=== PATIENT | male | born 1995 | race Caucasian/White ===

== ENCOUNTER 2017-12-31 19:32 | Inpatient (IN) ==
[2017-12-31] MEDS ORDERED: Diphtheria/Tetanus/Pertussis Vaccine Inj 0.5 ML Syringe IM ONE ×2 (19:40→19:49)
[2017-12-31] MEDS ORDERED: ceFAZolin 2 GM Premix Inj 2 GM/50 ML PIGGYBACK IV.SIG ONE ×3 (19:40→22:15)
[2017-12-31] MEDS ORDERED: Sod Chloride 0.9% Inj 1,000 ML IV.CONT SCH ×2 (19:45→23:45)
[2017-12-31] MEDS ORDERED: fentaNYL Citrate Inj 100 MCG/2 ML Ampul ONE ×2 (20:01→21:15)
--- NOTE | 2017-12-31 20:01 | XR ---
EXAM DATE: 12/31/2017 7:41 PM EDT AGE/SEX: 22 years / Male INDICATIONS: Trauma alert. Left forearm laceration. CLINICAL DATA: This is the patient's initial encounter. Patient reports that signs and symptoms have been present for 1 day and indicates a pain score of 10/10. MEDICAL/SURGICAL HISTORY: None. None. COMPARISON: No prior exams available for comparison. FINDINGS: A single AP view of the chest demonstrates the lungs to be symmetrically aerated without evidence of mass, infiltrate or effusion. The cardiomediastinal contours are unremarkable. Osseous structures a re intact. CONCLUSION: No acute cardiopulmonary process. Electronically signed by: Carlos A Smith MD 12/31/2017 8:00 PM EDT
--- NOTE | 2017-12-31 20:11 | XR ---
EXAM DATE: 12/31/2017 7:42 PM EDT AGE/SEX: 22 years / Male INDICATIONS: Trauma alert. Left forearm laceration. CLINICAL DATA: This is the patient's initial encounter. Patient reports that signs and symptoms have been present for 1 day and indicates a pain score of 10/10. MEDICAL/SURGICAL HISTORY: None. None. COMPARISON: No prior exams available for comparison. FINDINGS: Bony structures are intact and in normal alignment. Osseous density is normal. There appears to be s oft tissue swelling at the volar aspect of the midforearm. No radiopaque foreign bodies seen. CONCLUSION: Soft tissue swelling. An acute bony injury is not seen. Electronically signed by: Carlos A Smith MD 12/31/2017 8:10 PM EDT
[2017-12-31 20:17] LABS: Baso # (Auto) 0.1 th/mm3 (0.0-0.2); Baso % (Auto) 0.9 % (0.0-2.0); Eos # (Auto) 0.2 th/mm3 (0.0-0.4); Hematocrit 42.1 % (39.0-51.0); Hemoglobin 14.2 gm/dL (13.0-17.0); Mean Corpuscular HGB Conc 33.9 % (32.0-36.0); Mean Corpuscular Hemoglobin 31.1 pg (27.0-34.0); Mean Platelet Volume 8.9 fL (7.0-11.0); Mono # (Auto) 0.6 th/mm3 (0.0-0.9); Mono % (Auto) 6.2 % (0.0-8.0); Neut # (Auto) 4.4 th/mm3 (1.8-7.7); Neut % (Auto) 47.9 % (16.0-70.0); Platelet Count 250 th/mm3 (150-450); Red Blood Count 4.58 mil/mm3 (4.50-5.90); Red Cell Distribution Width 12.7 % (11.6-17.2); White Blood Count 9.2 th/mm3 (4.0-11.0)
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
[2017-12-31 20:29] LABS: Activated Partial Thrombo Time 22.6 sec (24.3-30.1); INR 1.1 Ratio; Prothrombin Time 10.7 sec (9.8-11.6)
[2017-12-31] MEDS ORDERED: Heparin 10,000 UNITS/10 ML Vial (for IV use) ONE (20:33)
[2017-12-31] MEDS ORDERED: Lidocaine 2% Inj 50 ML Vial ONE (20:33)
[2017-12-31] MEDS ORDERED: fentaNYL Citrate Inj 100 MCG/2 ML Ampul IV.PUSH ONE ×2 (20:45)
[2017-12-31] MEDS ORDERED: Sodium Chlor 0.9% Inj 250 ML IV.SIG SCH (21:00)
[2017-12-31] MEDS ORDERED: Heparin - SQ 10,000 UNITS/ML Vial ONE (21:08)
[2017-12-31] MEDS ORDERED: HYDROmorphone PF Inj 2 MG/ML Vial ONE (21:15)
[2017-12-31] MEDS ORDERED: Succinylcholine Inj 100 MG/5 ML Syringe IV.PUSH ONE (21:17)
[2017-12-31] MEDS ORDERED: Phenylephrine/NS 1000 MCG/10ML Syringe IV.PUSH ONE (21:17)
[2017-12-31] MEDS ORDERED: Lidocaine PF 1% Inj 5 ML Syringe OTHER ONE (21:17)
[2017-12-31] MEDS ORDERED: fentaNYL Citrate Inj 250 MCG/5 ML Ampul ONE (22:40)
[2017-12-31] MEDS ORDERED: Acetaminophen 325 MG Tablet PO PRN (23:49)
[2018-01-01] MEDS ORDERED: *Meperidine Inj 25 MG/ML Vial PERIprocedural Use ONLY ONE (03:14)
--- NOTE | 2018-01-01 03:16 | P.BOP ---
- Postoperative Diagnosis (1) Laceration of forearm, complicated (2) Vascular injury of left arm (3) Arm peripheral nerve injury Date of procedure: 01/01/18 Procedure: 1. Left ulnar and radial artery repair 2. Left median and ulnar nerve repair with allograft 3. Repair of flexor carpi radialis, FDS/FDP IF/MF/RF/SF Implants: Axogen Nerve Connectors, Allograft Surgeon: Deon Mendez MD Estimated blood loss (mL): 100 Pathology: none sent Condition: stable Disposition: ICU (1. Neurovascular checks q2H 2. ASA 650mg daily x 4 weeks 3. Elevate upper extremity 3. OK for discharge on POD#2)
[2018-01-01] MEDS ORDERED: *Ondansetron Inj 4 MG/2 ML Vial PERIprocedural Use ONLY ONE (03:20)
[2018-01-01] MEDS ORDERED: Chlorhexidine Gluconate 2% 1 Pack (2 Cloths) TOPICAL SCH (04:00)
[2018-01-01] MEDS ORDERED: Chlorhexidine Gluconate 2% 1 Pack (2 Cloths) TOPICAL PRN (04:00)
[2018-01-01] MEDS: Morphine Sulfate Inj 2 MG/ML Vial IV.PUSH PRN ×3 (04:17→08:25)
[2018-01-01 08:17] LABS: Baso % (Auto) 0.1 % (0.0-2.0); Hematocrit 27.6 % (39.0-51.0); Hemoglobin 9.6 gm/dL (13.0-17.0); Lymph # (Auto) 1.5 th/mm3 (1.0-4.8); Lymph % (Auto) 6.4 % (9.0-44.0); Mean Corpuscular HGB Conc 34.7 % (32.0-36.0); Mean Corpuscular Hemoglobin 31.4 pg (27.0-34.0); Mean Corpuscular Volume 90.3 fL (80.0-100.0); Mean Platelet Volume 8.9 fL (7.0-11.0); Mono # (Auto) 0.7 th/mm3 (0.0-0.9); Mono % (Auto) 2.9 % (0.0-8.0); Neut # (Auto) 20.7 th/mm3 (1.8-7.7); Neut % (Auto) 90.6 % (16.0-70.0); Platelet Count 191 th/mm3 (150-450); Red Blood Count 3.06 mil/mm3 (4.50-5.90); Red Cell Distribution Width 12.5 % (11.6-17.2); White Blood Count 22.8 th/mm3 (4.0-11.0)
[2018-01-01 08:39] LABS: Anion Gap 11 meq/L (5-15); Blood Urea Nitrogen 11 mg/dL (7-18); Calcium 7.7 mg/dL (8.5-10.1); Carbon Dioxide 23.4 meq/L (21.0-32.0); Chloride 107 meq/L (98-107); Glomerular Filtration Rate Greater Than 89 mL/min (>89); Glucose,Random 122 mg/dL (74-106); Sodium 141 meq/L (136-145)
[2018-01-01] MEDS ORDERED: Aspirin 325 MG Tablet PO SCH (09:00)
[2018-01-01] MEDS ORDERED: Senna/Docusate Sodium 8.6/50 MG Tablet PO SCH (09:00)
[2018-01-01 10:38] VITALS: PULSE 88
[2018-01-01 12:11] VITALS: BP 153/63; RESP 16; TEMP 98; O2SAT 97
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
== END 2018-01-01 14:22 | disposition home or self-care (01) ==
LOC: NEPC 19:32 → NEDA 21:00 → N07 22:01 → N03 01-01 04:03
PROVIDERS: ADMIT Surgery; ATTEND Surgery